=== PATIENT | male | born 1945 | race Caucasian/White ===

== ENCOUNTER 2021-02-02 18:14 | Outpatient (REF) | payer MEDICARE, OTHER, SELFPAY ==
[2021-02-02 15:47] LABS: Hemoglobin A1C 11.1 % (<5.7)
[2021-02-02 16:33] LABS: ALT 65 U/L (16-63); AST 20 U/L (15-37); Albumin 3.7 g/dL (3.4-5.0); Alkaline Phosphatase 257 U/L (46-116); Anion Gap 10.1 mmol/L (3-11); BUN 17 mg/dL (7-18); Bilirubin, Total 0.6 mg/dL (0.2-1.0); CO2 25.9 mmol/L (21.0-32.0); CREATININE 0.8 mg/dL (0.70-1.30); Calcium 9.6 mg/dL (8.5-10.1); Calculated LDL 102 mg/dL (<100); Chloride 102 mmol/L (98-107); Cholesterol 189 mg/dL (<200); Glucose 299 mg/dL (74-106); HDL Cholesterol 66 mg/dL (40-60); Potassium 4.4 mmol/L (3.5-5.1); Sodium 138 mmol/L (136-145); Total Protein 6.9 g/dL (6.4-8.2); Triglyceride 105 mg/dL (<150)
== END 2021-02-02 18:15 | disposition home or self-care (01) ==
LOC: NCHCN 18:14
PROVIDERS: PCP Physician Assistant; Visit Provider Physician Assistant
DX: E11.9 Type 2 diabetes mellitus without complications (principal)
CPT/HCPCS: 80053; 80061; 83036

== ENCOUNTER 2024-10-06 14:24 | Emergency (ER) | payer MEDICARE, SELFPAY ==
[2024-10-06 14:26] VITALS: BP 176/74; PULSE 63; RESP 17; TEMP 36.3; O2SAT 97
[2024-10-06 15:11] LABS: Bilirubin Negative (Negative); Blood Negative (Negative); Clarity Sl Cloudy (Clear); Glucose >=1000 mg/dL (Negative); Ketones Negative (Negative); Leukocyte Esterase Negative (Negative); Nitrite Positive (Negative); Specific Gravity 1.015 (1.005-1.025); Urobilinogen 0.2 mg/dL (Up to 0.2); pH 7.5 (5-8)
--- NOTE | 2024-10-06 15:18 | W.ED.GENAD ---
Discharge Plan Disposition Patient Disposition: Home Condition: Stable Discharge Details Clinical Impression: Urinary tract infection Primary Care Provider: Ernesto Alvarado ED Provider: Chapito Spence Home Meds and New Rx's Prescriptions: New levofloxacin 750 mg tablet 750 mg PO DAILY Qty: 6 0RF Continued lisinopril 5 mg tablet 5 mg PO DAILY metformin 1,000 mg tablet 1,000 mg PO DAILY Discharge Instructions Additional Instructions: Take the antibiotic as prescribed. It is important that you take your diabetes medication to keep your glucose under control Follow-up with your primary care provider when you return home If you feel more ill, have high fevers or severe abdominal or back pain return to your closest emergency department. HPI General Mode of arrival: ambulatory. Date/Time Provider Initiated Documentation: 10/06/24 14:32. Limitations to Documentation: no limitations. Information obtained by: patient. History of Present Illness 78 year old M presents to the emergency department with the chief complaint of burning with urination, described as moderate, Patient started experiencing this day(s) (1) and it has been constant. No relieving factors improve symptom(s), No exacerbating factors reported . Patient notes denies fever/chills, nausea/vomiting and shortness of breath. Patient did receive the following treatments prior to arrival, none Related Data Home Medications ?Medication ?Instructions ?Recorded ?Confirmed levofloxacin 750 mg tablet 750 mg PO DAILY #6 tabs 10/06/24 lisinopril 5 mg tablet 5 mg PO DAILY 10/06/24 10/06/24 metformin 1,000 mg tablet 1,000 mg PO DAILY 10/06/24 10/06/24 Previous Rx's ?Medication ?Instructions ?Recorded levofloxacin 750 mg tablet 750 mg PO DAILY #6 tabs 10/06/24 Allergies Allergy/AdvReac Type Severity Reaction Status Date / Time Penicillins Allergy Intermediate Skin Rash Verified 10/06/24 14:35 General Stated Complaint: Urinary PRIYA: 3 Review of Systems All systems reviewed & are unremarkable except as noted in HPI and below Constitutional Constitutional: Denies chills, Denies fever(s) and Denies weakness Cardiovascular Cardiovascular: Denies chest pain and Denies dyspnea Respiratory Respiratory: Denies cough and Denies dyspnea Gastrointestinal Gastrointestinal: Denies abdominal pain, Denies nausea and Denies vomiting Genitourinary Genitourinary: Reports dysuria Musculoskeletal Musculoskeletal: Denies joint swelling Neurologic Neurologic: Denies weakness Exam Const General: no acute distress Orientation: alert [facility] Head: normal to inspection Ears: external ears normal General nose exam: external nose normal Mouth: moist mucous membranes Eyes General: appearance normal, both eyes and all related structures Neck Neck: normal visual inspection Resp Effort & Inspection: normal respiratory effort and able to speak in complete sentences Cardio Rate: regular rate GI Palpation: soft and nontender Back/Spine/Pelvis Back: no CVA tenderness Skin General skin exam: no rashes or lesions noted Neuro General: patient alert and patient oriented x3 Extrem General: normal to inspection Psych Mental Status: mental status grossly normal Course Vital Signs Vital signs: Vital Signs Temperature 36.3 C L 10/06/24 14:26 Pulse 63 10/06/24 14:26 Respiratory Rate 17 10/06/24 14:26 Blood Pressure 176/74 H 10/06/24 14:26 Pulse Oximetry 97 10/06/24 14:26 Temperature 36.3 C L 10/06/24 14:26 Temperature Source Temporal Artery Scan 10/06/24 14:26 Pulse 63 10/06/24 14:26 Respiratory Rate 17 10/06/24 14:26 Blood Pressure 176/74 H 10/06/24 14:26 Blood Pressure Position Sitting 10/06/24 14:26 Pulse Oximetry 97 10/06/24 14:26 Oxygen Delivery Method Room Air 10/06/24 14:26 Oxygen Flow Rate 0 10/06/24 14:26 Medical Decision Making 78-year-old male who says he has a history of diabetes on metformin comes in with 1 day of painful urination and thinks he has a UTI. He says he never had one before. He says he otherwise feels well, denies any abdominal pain, back pain, vomiting, fevers or chills. He is well-appearing on exam. He had a blood glucose done in triage that was just over 300. He has no CVA tenderness and no abdominal tenderness. Based on his description I suspect urinary tract infection, will check a UA and given his glucose being elevated we will check a CBC CMP and VBG to screen for electrolyte abnormalities and acidosis. UA consistent with UTI, has no leukocytosis and negative Pro-Joey so doubt sepsis. Glucose elevated otherwise electrolytes unremarkable. He apparently does not take his metformin routinely and I stressed the importance of taking this as prescribed as uncontrolled diabetes can cause complications. He is stable for discharge I will start him on levofloxacin and he will follow-up with his primary care provider when he returns to [place], return precautions given Differential Diagnosis Differential Diagnosis: Dysuria, cystitis, DKA Quality:SDOH Health Related Social Needs: No Data to Display PFSH All Active Problems (Updated 10/06/24 @ 16:20 by Chapito Spence MD) Urinary tract infection (Acute) Social History Smoking/Tobacco Use Status: Never Smoking risk assessment performed?: Yes Alcohol Intake: never Drug use: Never Substance use type: does not use Housing: house Do you feel safe at home: Yes Do you feel safe in your relationship?: Yes
[2024-10-06 15:24] LABS: Bacteria Many HPF (Negative); C & S Indicated? Yes; Casts 0-2 Coarse Granular LPF (Negative); Crystals Negative HPF (Negative); Epithelial Cells Rare HPF (Negative); Mucus Negative (Negative); Other Cells Negative (Negative); RBC Negative HPF (0-2); WBC >50 HPF (0-5)
[2024-10-06 15:38] LABS: Abs Immature Grans 0.01 10^3/uL (0.0-0.06); Absolute Basophil Count 0.05 10^3/uL (0.0-0.2); Absolute Eosinophil Count 0.14 10^3/uL (0.0-0.7); Absolute Lymphocyte Count 1.25 10^3/uL (1.2-3.4); Absolute Monocyte Count 0.49 10^3/uL (0.1-0.8); Absolute Neutrophil Count 3.84 10^3/uL (1.2-6.7); Basophils % 0.9 %; Eosinophils % 2.4 %; HCT 39.3 % (40.0-50.0); HGB 13.1 g/dL (13.5-17.5); Immature Grans % 0.2 %; Lymphocytes % 21.6 %; MCH 29.2 pg (27.0-33.0); MCHC 33.3 % (32.0-36.0); MCV 88 fL (80-95); Monocytes % 8.5 %; Neutrophils % 66.4 %; Platelet Count 158 10^3/uL (130-400); RBC 4.48 10^6/uL (4.36-5.78); RDW-SD 38.7 fL; WBC 5.78 10^3/uL (4.4-10.8)
[2024-10-06 15:51] VITALS: BP 170/68; PULSE 71
[2024-10-06 15:55] LABS: ALT 20 U/L (16-63); AST 13 U/L (15-37); Alkaline Phosphatase 133 U/L (46-116); Anion Gap 7.9 mmol/L (3-11); BUN 22 mg/dL (7-18); Bilirubin, Total 0.41 mg/dL (0.2-1.0); CO2 27.1 mmol/L (21.0-32.0); CREATININE 0.9 mg/dL (0.70-1.30); Calcium 9.3 mg/dL (8.5-10.1); Chloride 105 mmol/L (98-107); Estimated GFR 87.42 (mL/min/1.73m2); Glucose 361 mg/dL (74-106); Sodium 140 mmol/L (136-145); Total Protein 7.4 g/dL (6.4-8.2)
[2024-10-06 15:55] LABS: BE (Venous) 4 mmol/L (-2-3); HCO3 (Venous) 29 mmol/L (23-28); O2 Sat (Venous) 55 %; TCO2 (Venous) 27 mmol/L (24-29); pCO2 (Venous) 49 mmHg (41-51); pH (Venous) 7.38 (7.31-7.41); pO2 (Venous) 30 mmHg
[2024-10-06] MEDS: levoFLOXacin 500 MG, levoFLOXacin 250 MG 750 MG PO (15:57)
[2024-10-06 16:10] LABS: Procalcitonin < 0.10 ng/mL
[2024-10-06 16:42] VITALS: BP 183/71; PULSE 60; RESP 18; O2SAT 100
--- NOTE | 2024-10-08 08:44 | NUR.NOTE ---
Accessed Pt chart to obtain the antibiotic prescribed to the Pt, for the specimen results document.
== END 2024-10-06 16:44 | disposition home or self-care (01) ==
PROVIDERS: Emergency Medicine; Emergency Provider Emergency Medicine; PCP Physician Assistant
DX: N39.0 Urinary tract infection, site not specified (principal); E11.65 Type 2 diabetes mellitus with hyperglycemia; Z79.84 Long term (current) use of oral hypoglycemic drugs; Z91.148 Patient's other noncompliance with medication regimen for other reason; T38.3X6A Underdosing of insulin and oral hypoglycemic [antidiabetic] drugs, initial encounter
CPT/HCPCS: 36415; 80053; 82805; 84145; 99283; 81003; 81015; 83735; 85025; 87086